=== PATIENT | female | born 1995 | race Asian ===

== ENCOUNTER 2017-05-08 00:15 | Emergency (ER) | payer OTHER ==
[2017-05-08 02:23] VITALS: BP 0/0
== END 2017-05-08 02:23 | disposition left against medical advice (07) ==
LOC: ED 00:15
DX: R05 Cough (principal); Z53.21 Procedure and treatment not carried out due to patient leaving prior to being seen by health care provider

== ENCOUNTER 2017-11-20 19:25 | Emergency (ER) | payer OTHER ==
--- NOTE | 2017-11-20 19:52 | ED ---
Substance Abuse/Use - HPI Summary HPI Summary: Complete HPI unobtainable due to level 5 caveat intoxication. Pt is 22 y/o F BIBA to [facility] due to alcohol intoxication. She had been drinking with friends and earlier, and her friends called EMS because they were worried about her intoxication level per EMS report. - History Of Current Complaint Chief Complaint: EDSubstanceAbuse Stated Complaint: INTOXICATED Time Seen by Provider: 11/20/17 19:44 Hx Obtained From: EMS, Medical Records Hx From Patient Unobtainable Due To: Altered Mental Status Ingestion History: Type/Name Of Drug - Alcohol - Allergies/Home Medications Allergies/Adverse Reactions: Allergies Allergy/AdvReac Type Severity Reaction Status Date / Time No Known Allergies Allergy Verified 05/08/17 00:20 PMH/Surg Hx/FS Hx/Imm Hx Infectious Disease History: Unable to Obtain/Confirm Infectious Disease History: Denies: Traveled Outside the [place] in Last 30 Days - Social History Alcohol Use: unknown Substance Use Type: Reports: Other Substance Use Comment - Amount & Last Used: Unknown Smoking Status (MU): Unknown if Ever Smoked - Additional Comments History Additional Comments: Level 5 caveat due to intoxication. Review of Systems - ROS Summary Review of Systems Summary: Level 5 caveat due to intoxication. All Other Systems Reviewed And Are Negative: No Physical Exam - Summary Physical Exam Summary: Appearance: Well-appearing, Well-nourished, lying in bed comfortable Skin: Warm, dry, no obvious rash Eyes: sclera anicteric, no conjunctival pallor ENT: mucous membranes moist Neck: deferred Respiratory: No signs of respiratory distress Cardiovascular: Appears well perfused, pulses are nml Abdomen: deferred Musculoskeletal: Moving all 4 extremities without obvious discomfort Neurological: Somnolent but arousable, could nod yes/no to simple questions, did not follow commands or speak, mentation is normal. On reevaluation pt is awake and alert, conversing appropriately. Psychiatric: affect is normal, does not appear anxious or depressed Triage Information Reviewed: Yes Vital Signs On Initial Exam: Initial Vitals Pulse BP Pulse Ox 62 122/78 98 11/20/17 19:34 11/20/17 19:34 11/20/17 19:34 Vital Signs Reviewed: Yes Diagnostics - Vital Signs Vital Signs Temp Pulse Resp BP Pulse Ox 11/20/17 19:38 51 98 11/20/17 19:35 97.8 F 64 24 122/78 99 11/20/17 19:34 62 122/78 98 - Laboratory Lab Statement: Any lab studies that have been ordered have been reviewed, and results considered in the medical decision making process. Course/Dx - Diagnoses Differential Diagnosis/HQI/PQRI: Positive: Acute Psychosis, Alcohol Abuse Provider Diagnoses: Alcohol intoxication Discharge - Sign-Out/Discharge Documenting (check all that apply): Patient Departure - Discharge Plan Condition: Improved Disposition: HOME Patient Education Materials: Alcohol Intoxication (ED) [facility] - - Billing Disposition and Condition Condition: IMPROVED Disposition: Home - Attestation Statements Document Initiated by Scribe: Yes Documenting Scribe: Bebo Schmidt Provider For Whom Michaela is Documenting (Include Credential): Suhas Fallon MD Scribe Attestation: Bebo Greenberg, scribed for Suhas Fallon MD on 11/21/17 at 1952. Scribe Documentation Reviewed: Yes Provider Attestation: The documentation as recorded by the Bebo devries accurately reflects the service I personally performed and the decisions made by Suhas woodard MD
[2017-11-20 21:47] VITALS: BP 115/67
== END 2017-11-20 21:56 | disposition home or self-care (01) ==
LOC: ED 19:25
DX: F10.129 Alcohol abuse with intoxication, unspecified (principal)
CPT/HCPCS: 99282